=== PATIENT | female | born 1990 | race Caucasian/White ===

== ENCOUNTER → 2023-09-15 18:40 | Outpatient (CLI) | payer OTHER, SELFPAY ==
--- NOTE | 2023-09-15 18:42 | DI.RAD.S_ITS ---
PROCEDURE: XR FOOT RT MIN 3V INDICATIONS: Right foot pain, suspected synovial cyst next bunion TECHNIQUE: 3 views of the foot were acquired. COMPARISON: None. FINDINGS: Bones: No fractures or dislocations. No suspicious bony lesions. Well-defined cortical lucency of the proximal navicular bone. Hallux valgus with mild bone bunion formation. Soft tissues: No tibiotalar joint effusion. Achilles tendon appears normal. IMPRESSION: Hallux valgus with mild bone bunion formation. Well-defined cortical lucency of the proximal navicular bone, possibly congenital versus a remote healed fracture. Dictated by: Dimitrios John M.D. on 09/15/2023 at 19:24 Approved by: Dimitrios John M.D. on 09/15/2023 at 19:25
== END ==
PROVIDERS: Referring Provider Physician Assistant Surgical; Visit Provider Physician Assistant Surgical
DX: S99.921A Unspecified injury of right foot, initial encounter (principal); M20.11 Hallux valgus (acquired), right foot; M21.611 Bunion of right foot; X58.XXXA Exposure to other specified factors, initial encounter
CPT/HCPCS: 73630